=== PATIENT | male | born 1975 | race Caucasian/White ===

== ENCOUNTER 2016-12-15 20:15 | Emergency (ER) | payer BC, OTHER ==
--- NOTE | 2016-12-15 21:18 | ED CLINICAL REPORT ---
Clinical Report - Physicians/Mid Levels [facility] [address] [place] [address] 12/15/2016 20:21 [id number] Time Seen: 20:50; initial patient contact. Arrived- By private vehicle. Historian- patient. HISTORY OF PRESENT ILLNESS Chief Complaint: Injury to the left thumb. The injury happened just prior to arrival. Occurred at home. ( Injury occurred. This occurred (at 445 PM). ( pt was cutting gilberto with razor knife and cut his left thumb). No numbness.). The patient sustained a laceration from a knife. Patient is experiencing mild pain. No other injury. REVIEW OF SYSTEMS The patient sustained a single laceration to the left thumb. All systems otherwise negative, except as recorded above. PAST HISTORY See nurses notes. The patient's dominant hand is the right. Tetanus immunization status is unknown. Problems: Hypertension. Medications: Aspirin Oral (Tablet Chewable 81 mg) 1 tablet, daily. Lisinopril Oral (Tablet 30 mg) 1 tablet, daily. Cymbalta Oral 90 mg, daily. Allergies: None. SOCIAL HISTORY Never smoker. No alcohol use or drug use. ADDITIONAL NOTES The nursing notes have been reviewed with agreement regarding the chief complaint, HPI, ROS, PMH and patient medications and allergies. PHYSICAL EXAM Vital Signs: 12/15/2016 20:31 BP: 132/65. HR: 81. RR: 16. O2 saturation: 95%. Temp: 98.6 F. Pain level now: 2/10. Have been reviewed. Appearance: Alert. Oriented X3. No acute distress. Extremities: Left thumb: subcutaneous 1.0 cm laceration of the volar aspect and IP joint. SEE LACERATION PROCEDURE NOTE #1. Neurovascular intact distally. No limitation in movement. No wrist injury. Hand and wrist exam otherwise negative. Extremities otherwise negative. Neuro, Vascular and Tendons: Vascular status intact. Sensation intact. Motor intact. Tendon function intact. PROGRESS AND PROCEDURES Laceration Repair: Time: 21:00. Location: left thumb. Length: 1 cm. Complexity: simple (local anesthesia used and sutured). Wound depth/shape- subcutaneous and linear and involving fascia. Distal neuro/vascular/tendon status normal. No sensory deficit distally. Local anesthesia provided using 1% lidocaine (2 mL). Prepped with chlorhexidine. Wound explored, cleansed, irrigated and examined to the base in bloodless field extensively with normal saline. Closure of skin: 4-0 (3 sutures). Post-procedure: he is stable and there are no complications. Bleeding is controlled and neuro-vascular status is intact distal to the wound (3 sutures). Sterile dressing consisting of 4x4 gauze was applied. Following the application of antibiotic ointment. Secured with tape and annamarie. Tetanus immunization given. Estimated blood loss: 1 mL. Course of Care: Patient is stable. Symptoms better. Patient/family counseled. CLINICAL IMPRESSION Single deep laceration to the left thumb.No foreign body present or left fingernail injury. INSTRUCTIONS Elevate affected areas above chest level. Protect wound and keep wound area clean. You may wash wounds briefly, then dry. Sutures should be removed in seven days. Limit use of your left hand for one weeks as needed and until better. No dietary restrictions. Warnings: COMPLICATIONS: Complications from this condition are possible. Future problems may include infection, scarring and pain. It is important to follow up with a physician for further evaluation and treatment. TETANUS: You were given a tetanus shot during your visit. Make a note for future reference. GENERAL WARNINGS: Return or contact your physician immediately if your condition worsens or changes unexpectedly, if not improving as expected, or if other problems arise. Your Current Medications: CONTINUE TAKING THE FOLLOWING MEDICATIONS: Aspirin Oral : Tablet Chewable 81 mg, 1 tablet daily. Cymbalta Oral : 90 mg daily. Lisinopril Oral : Tablet 30 mg, 1 tablet daily. Prescription Medications: Hydrocodone/APAP 5mg / 325mg: take 1 orally every 6 hours as needed for pain. Dispense ten (10). No refill. Follow-up: Follow up with your doctor in seven days for suture removal. Reason for referral: laceration. Understanding of the discharge instructions verbalized by patient. (Electronically signed by Renetta Cruz PA-C 12/15/2016 21:49)
--- NOTE | 2016-12-15 21:18 | ED NURSING NOTES ---
Clinical Report - Nurses [facility] [address] [place] [address] 12/15/2016 20:21 [id number] Triage time 20:Dec 15 2016. Acuity: LEVEL 4. Chief Complaint: Location of symptoms- left thumb (laceration). Alert. No acute distress. KOFFI COMA SCORE: [place] Coma Scale: 15- eyes open spontaneously (4); best verbal response- oriented x 4 (5); best motor response- obeys commands (6). --20:37 Jillian Sesay R.N. 20:31 12/15/16. BP: 132/65. HR: 81. RR: 16. O2 saturation: 95%. Temp: 98.6 F. Pain level now: 08/23. --20:37 Jillian Sesay R.N. Weight: 99.7 kg stated. Height/Length: 69 inches Per Patient. BMI: 32.5. --20:35 Jillian Sesay R.N. Medications Cymbalta Oral 90 mg, daily. --20:33 Jillian Sesay R.N. Lisinopril Oral (Tablet 30 mg) 1 tablet, daily. --20:33 Jillian Sesay R.N. Aspirin Oral (Tablet Chewable 81 mg) 1 tablet, daily. --20:33 Jillian Sesay R.N. Allergies None. --20:34 Jillian Sesay R.N. History Arrived by private vehicle. Historian: patient. Accompanied by family. Injury occurred. This occurred (at 445 PM). ( pt was cutting gilberto with razor knife and cut his left thumb). No numbness. Treatment INSPECTOR TUBES: None. PAST MEDICAL HX: Tetanus status: unknown. Immunizations: status is unknown. SOCIAL HX: Never smoker. Occasional alcohol use. No drug use. No infectious disease exposure. SELF HARM ASSESSMENT: A self harm assessment was performed. The patient answered "no" to the question "Do you have thoughts of harming or killing yourself?". FALL RISK ASSESSMENT: Fall risk assessment completed. No fall risk identified. NUTRITIONAL RISK ASSESSMENT: The nutritional risk assessment revealed no deficiencies. FUNCTIONAL ASSESSMENT: Functional assessment: no impairments noted. LEARNING NEEDS ASSESSMENT: The learning needs assessment revealed no barriers. ABUSE ASSESSMENT: Abuse assessment: The patient was asked "Do you feel safe in your home?". SKIN INTEGRITY ASSESSMENT: Skin integrity risk assessment completed. No skin integrity risk identified. --20:37 Jillian Sesay R.N. PROBLEMS: Hypertension. --20:35 Jillian Sesay R.N. ADDITIONAL SURGERIES: Lyphoma. Vericel. --20:35 Jillian Sesay R.N. Interventions ID band on patient. --20:37 Jillian Sesay R.N. PHYSICAL ASSESSMENT Ambulatory to room. GENERAL / NEURO / PSYCH: Oriented X 4. Alert. Appears in no acute distress. EXTREMITIES: Extremities exhibit normal ROM. Neuro-vascular status intact to the extremity. Left thumb: subcutaneous 1.5 cm laceration. SKIN: Skin is warm and dry. --20:37 Jillian Sesay R.N. NURSING PROGRESS NOTES Patient identifiers checked. Call light placed in reach. Bed placed in lowest position. Brakes of bed on. --20:38 Jillian Sesay R.N. Wound cleansed with sterile saline. --21:06 Jillian Sesay R.N. 21:27 12/15/2016 TDAP IM 0.5 mL given. (Lot#: [id number], expiration date: 11/21/2018). Given in the left deltoid. Allergies verified and confirmed 5 rights. Vaccine information statement provided to the patient. --21:27 Jillian Sesay R.N. DISPOSITION / DISCHARGE Departure time: 21:50 Dec 15 2016. Condition at departure: improved. No learning barriers present. Discharge instructions provided and reviewed with the patient. Reviewed medication(s) side effects, precautions, dosing and course information. Prescription(s) given to the patient. Reviewed referral to a primary care physician for followup. Patient verbalized understanding. Written instructions provided in [place]. The patient was discharged home and accompanied by spouse. He left the Emergency Department ambulatory and via private vehicle. Spouse driving. FALL RISK ASSESSMENT: Fall risk assessment completed. No fall risk identified. --21:50 Jillian Sesay R.N. 21:49 12/15/16. BP: 106/58. HR: 88. RR: 16. O2 saturation: 95%. Pain level now: 08/23. --21:50 Jillian Sesay R.N. Locked/Released at 12/15/2016 21:50 by Jillian Sesay R.N.
--- NOTE | 2016-12-15 21:18 | ED NURSING NOTES ---
Clinical Report - Nurses [facility] [address] [place] [address] 12/15/2016 20:21 [id number] Triage time 20:Dec 15 2016. Acuity: LEVEL 4. Chief Complaint: Location of symptoms- left thumb (laceration). Alert. No acute distress. KOFFI COMA SCORE: [place] Coma Scale: 15- eyes open spontaneously (4); best verbal response- oriented x 4 (5); best motor response- obeys commands (6). --20:37 Jillian Sesay R.N. 20:31 12/15/16. BP: 132/65. HR: 81. RR: 16. O2 saturation: 95%. Temp: 98.6 F. Pain level now: 08/23. --20:37 Jillian Sesay R.N. Weight: 99.7 kg stated. Height/Length: 69 inches Per Patient. BMI: 32.5. --20:35 Jillian Sesay R.N. Medications Cymbalta Oral 90 mg, daily. --20:33 Jillian Sesay R.N. Lisinopril Oral (Tablet 30 mg) 1 tablet, daily. --20:33 Jillian Sesay R.N. Aspirin Oral (Tablet Chewable 81 mg) 1 tablet, daily. --20:33 Jillian Sesay R.N. Allergies None. --20:34 Jillian Sesay R.N. History Arrived by private vehicle. Historian: patient. Accompanied by family. Injury occurred. This occurred (at 445 PM). ( pt was cutting gilberto with razor knife and cut his left thumb). No numbness. Treatment DAMPPROOFER: None. PAST MEDICAL HX: Tetanus status: unknown. Immunizations: status is unknown. SOCIAL HX: Never smoker. Occasional alcohol use. No drug use. No infectious disease exposure. SELF HARM ASSESSMENT: A self harm assessment was performed. The patient answered "no" to the question "Do you have thoughts of harming or killing yourself?". FALL RISK ASSESSMENT: Fall risk assessment completed. No fall risk identified. NUTRITIONAL RISK ASSESSMENT: The nutritional risk assessment revealed no deficiencies. FUNCTIONAL ASSESSMENT: Functional assessment: no impairments noted. LEARNING NEEDS ASSESSMENT: The learning needs assessment revealed no barriers. ABUSE ASSESSMENT: Abuse assessment: The patient was asked "Do you feel safe in your home?". SKIN INTEGRITY ASSESSMENT: Skin integrity risk assessment completed. No skin integrity risk identified. --20:37 Jillian Sesay R.N. PROBLEMS: Hypertension. --20:35 Jillian Sesay R.N. ADDITIONAL SURGERIES: Lyphoma. Vericel. --20:35 Jillian Sesay R.N. Interventions ID band on patient. --20:37 Jillian Sesay R.N. PHYSICAL ASSESSMENT Ambulatory to room. GENERAL / NEURO / PSYCH: Oriented X 4. Alert. Appears in no acute distress. EXTREMITIES: Extremities exhibit normal ROM. Neuro-vascular status intact to the extremity. Left thumb: subcutaneous 1.5 cm laceration. SKIN: Skin is warm and dry. --20:37 Jillian Sesay R.N. NURSING PROGRESS NOTES Patient identifiers checked. Call light placed in reach. Bed placed in lowest position. Brakes of bed on. --20:38 Jillian Sesay R.N. Wound cleansed with sterile saline. --21:06 Jillian Sesay R.N. 21:27 12/15/2016 TDAP IM 0.5 mL given. (Lot#: [id number], expiration date: 11/21/2018). Given in the left deltoid. Allergies verified and confirmed 5 rights. Vaccine information statement provided to the patient. --21:27 Jillian Sesay R.N. DISPOSITION / DISCHARGE Departure time: 21:50 Dec 15 2016. Condition at departure: improved. No learning barriers present. Discharge instructions provided and reviewed with the patient. Reviewed medication(s) side effects, precautions, dosing and course information. Prescription(s) given to the patient. Reviewed referral to a primary care physician for followup. Patient verbalized understanding. Written instructions provided in Israeli. The patient was discharged home and accompanied by spouse. He left the Emergency Department ambulatory and via private vehicle. Spouse driving. FALL RISK ASSESSMENT: Fall risk assessment completed. No fall risk identified. --21:50 Jillian Sesay R.N. 21:49 12/15/16. BP: 106/58. HR: 88. RR: 16. O2 saturation: 95%. Pain level now: 08/23. --21:50 Jillian Sesay R.N. Locked/Released at 12/15/2016 21:50 by Jillian Sesay R.N.
--- NOTE | 2016-12-15 21:51 | ED MED RECONCILIATION SUMMARY ---
Patient: CARLOS MIRAMONTES Medication Reconciliation Report [facility] VisitID: [id number] [address] [place] [address] 41y, M Registration Date/Time: 12/15/2016 Weight: 99.7 kg Height/Length: 69 in. BMI: 32.5 ALLERGIES: None The patient's Home Medications are listed below: CONTINUE TAKING THE FOLLOWING MEDICATIONS: Aspirin Oral (81 mg) 1 tablet, daily Cymbalta Oral 90 mg, daily Lisinopril Oral (30 mg) 1 tablet, daily The source(s) of the original Home Medication information: Not obtained. The following Medications were given to the patient in the Emergency Department: TDAP [IM] IM 0.5 mL, administered: 12/15/2016 9:27:00 PM The following Medications were prescribed to the patient: Hydrocodone/APAP 5mg / 325mg: take 1 orally every 6 hours as needed for pain. Dispense ten (10). No refill. -- Renetta Cruz PA-C
--- NOTE | 2016-12-15 21:51 | ED DISCHARGE INSTRUCTIONS ---
Patient: CARLOS MIRAMONTES General Instructions [facility] VisitID: [id number] [place] [address] 41y, M Registration Date/Time: 12/15/2016 Single deep laceration to the left thumb.No foreign body present or left fingernail injury. INSTRUCTIONS Elevate affected areas above chest level. Protect wound and keep wound area clean. You may wash wounds briefly, then dry. Sutures should be removed in seven days. Limit use of your left hand for one weeks as needed and until better. No dietary restrictions. Warnings: COMPLICATIONS: Complications from this condition are possible. Future problems may include infection, scarring and pain. It is important to follow up with a physician for further evaluation and treatment. TETANUS: You were given a tetanus shot during your visit. Make a note for future reference. GENERAL WARNINGS: Return or contact your physician immediately if your condition worsens or changes unexpectedly, if not improving as expected, or if other problems arise. Your Current Medications: CONTINUE TAKING THE FOLLOWING MEDICATIONS: Aspirin Oral : Tablet Chewable 81 mg, 1 tablet daily. Cymbalta Oral : 90 mg daily. Lisinopril Oral : Tablet 30 mg, 1 tablet daily. Prescription Medications: Hydrocodone/APAP 5mg / 325mg: take 1 orally every 6 hours as needed for pain. Dispense ten (10). No refill. Follow-up: Follow up with your doctor in seven days for suture removal. Reason for referral: laceration. Understanding of the discharge instructions verbalized by patient. ADDITIONAL INFORMATION Laceration (All Closures) Alaceration is a cut through the skin. This will usually require stitches (sutures) or bhaskar if it is deep. Minor cuts may be treated with a surgical tape closure orskin glue. Home care The following guidelines will help you care for your laceration at home: Extremity, face, or trunk wounds Keep the wound clean and dry. If a bandage was applied and it becomes wet or dirty, replace it. Otherwise, leave it in place for the first 24 hours. If stitches or bhaskar were used, clean the wound daily. After removing the bandage, wash the area with soap and water. Use a wet cotton swab to loosen and remove any blood or crust that forms. The doctor may prescribe an antibiotic cream or ointment to prevent infection. Do not stop taking this medication until you have finished the prescribed course or the doctor tells you to stop. The doctor may also prescribe medications for pain. Follow the doctors instructions for taking these medications. You may remove the bandage to shower as usual after the first 24 hours, but do not soak the area in water (no swimming) until the stitches or bhaskar are removed. If surgical tape was used, keep the area clean and dry. If it becomes wet, blot it dry with a towel. If skin glue was used, do not scratch, rub, or pick at the adhesive film. Do not place tape directly over the film. Do not apply liquid, ointment, or creams to the wound while the film is in place. Do not clean the wound with peroxide and do not apply ointments. Avoid activities that cause heavy sweating until the film has fallen off. Protect the wound from prolonged exposure to sunlight or tanning lamps. You may shower as usual but do not soak the wound in water (no baths or swimming). The film will fall off by itself in 510 days. Scalp wounds During the first two days, you may carefully rinse your hair in the shower to remove blood, glass or dirt particles. After two days, you may shower and shampoo your hair normally. Do not soak your scalp in the tub or go swimming until the stitches or bhaskar have been removed. Talk with your doctor before applying any antibiotic ointment to the wound. Mouth wounds Eat soft foods to reduce pain. If the cut is inside of your mouth, clean by rinsing after each meal and at bedtime with a mixture of equal parts water and hydrogen peroxide (do not swallow!). Or, you can use a cotton swab to directly apply hydrogen peroxide onto the cut. Mouth wounds can be painful when eating. You may use an gqsy-aob-rhgpyqz local numbing solution for pain relief. If this is not available, you may use any numbing solution for teething babies. You may apply this directly to the sores with a cotton-tip swab or with your finger. Follow-up care Follow up with your health care provider. Most skin wounds heal within ten days. Mouth and facial wounds heal within five days. However, even with proper treatment, a wound infection may sometimes occur. Therefore, you should check the wound daily for signs of infection listed below. Stitches should be removed from the face within five days; stitches and bhaskar should be removed from other parts of the body within 714 days. If dissolving stitches were used in the mouth, these will fall out or dissolve without the need for removal. If tape closures were used, remove them yourself if they have not fallen off after 7 days. Ifskin glue was used, the film will fall off by itself in 510 days. When to seek medical care Get prompt medical attention if any of these occur: Bleeding not controlled by direct pressure Signs of infection, including increasing pain in the wound, increasing wound redness or swelling, or pus coming from the wound Fever of 100.4F (38C) or higher, or as directed by your health care provider Stitches or bhaskar come apart or fall out or surgical tape falls off before 7 days Wound edges re-open Diphtheria Toxoid Adsorbed, Pertussis Vaccine, Acellular (Adsorbed), Tetanus Toxoid, Adsorbed Suspension for injection What is this medicine? DIPHTHERIA and TETANUS TOXOIDS; PERTUSSIS VACCINE (dif THEER ee uh and TET n us TOK soids; per VEGA corbin SEEN) is used to prevent diphtheria, tetanus, and pertussis infections. How should I use this medicine? This vaccine is for injection into a muscle. It is given by a health restorative care technician. A copy of Vaccine Information Statements will be given before each vaccination. Read this sheet carefully each time. The sheet may change frequently. Talk to your protective signal repairer helper regarding the use of this vaccine in children. While the DTP vaccine may be given to children ages 6 weeks to 7 years and the Tdap vaccine may be given to children at least 10 years old, precautions do apply. What side effects may I notice from receiving this medicine? Side effects that you should report to your doctor or health restorative care technician as soon as possible: allergic reactions like skin rash, itching or hives, swelling of the face, lips, or tongue breathing problems fever of 103 degrees F or more flu-like symptoms inconsolable crying infection pain, tingling, numbness in the hands or feet seizures swelling of arm or leg that was injected unusually weak or tired Side effects that usually do not require immediate medical attention (report these side effects to your doctor or health restorative care technician if they continue or are bothersome): fussy, irritable loss of appetite fever of 102 degrees F or less pain, tenderness, redness, swelling, or a 'knot' at site where injected vomiting What may interact with this medicine? immune globulin medicines that suppress your immune function like adalimumab, anakinra, infliximab medicines to treat cancer medicines that treat or prevent blood clots like warfarin, enoxaparin, and dalteparin steroid medicines like prednisone or cortisone What if I miss a dose? It is important not to miss your dose. Call your doctor or health restorative care technician if you are unable to keep an appointment. Where should I keep my medicine? This drug is given in a hospital or clinic and will not be stored at home. What should I tell my health care provider before I take this medicine? They need to know if you have any of these conditions: blood disorders like hemophilia fever or infection immune system problems neurologic disease seizures an unusual or allergic reaction to vaccines, thimerosal, latex, other medicines, foods, dyes, or preservatives or trying to get breast-feeding What should I watch for while using this medicine? See your health care provider for all shots of this vaccine as directed. To have protection from infection, you must have 3 shots of this vaccine plus boosters as needed. Tell your doctor right away if you have any serious or unusual side effects after getting this vaccine. You have been given the following additional information: Laceration, All Diphtheria Toxoid Adsorbed, Pertussis Vaccine, Acellular (Adsorbed), Tetanus Toxoid, Adsorbed Suspension for injection Limit use of your left hand for one weeks as needed and until better. (Electronically signed by Renetta Cruz PA-C 12/15/2016 21:49)
--- NOTE | 2016-12-15 21:51 | ED ORDER SUMMARY ---
..... Patient: CARLOS MIRAMONTES OrderSheet [facility] VisitID: [id number] [address] [place] [address] 41y, M Registration Date/Time: 12/15/2016 ORDER SHEET Weight: 99.7 kg (stated) Allergies: None GENERAL ORDERS: MEDICATION ORDERS: Tdap IM 0.5 mL (NOW) (21:26 12/15/2016 Carola R.NDee Dee per protocol) (21:27 Carola R.N.) IV FLUIDS: ORDER SHEET NOTES: [Electronically signed by Renetta Cruz PA-C (21:49 12/15/2016)] [Electronically signed by Jillian Sesay R.N. (21:50 12/15/2016)] [Electronically locked/signed by Jillian Sesay R.N. (21:50 12/15/2016)]
--- NOTE | 2016-12-15 21:51 | ED DISCHARGE INSTRUCTIONS ---
Patient: CARLOS MIRAMONTES General Instructions [facility] VisitID: [id number] [place] [address] 41y, M Registration Date/Time: 12/15/2016 Single deep laceration to the left thumb.No foreign body present or left fingernail injury. INSTRUCTIONS Elevate affected areas above chest level. Protect wound and keep wound area clean. You may wash wounds briefly, then dry. Sutures should be removed in seven days. Limit use of your left hand for one weeks as needed and until better. No dietary restrictions. Warnings: COMPLICATIONS: Complications from this condition are possible. Future problems may include infection, scarring and pain. It is important to follow up with a physician for further evaluation and treatment. TETANUS: You were given a tetanus shot during your visit. Make a note for future reference. GENERAL WARNINGS: Return or contact your physician immediately if your condition worsens or changes unexpectedly, if not improving as expected, or if other problems arise. Your Current Medications: CONTINUE TAKING THE FOLLOWING MEDICATIONS: Aspirin Oral : Tablet Chewable 81 mg, 1 tablet daily. Cymbalta Oral : 90 mg daily. Lisinopril Oral : Tablet 30 mg, 1 tablet daily. Prescription Medications: Hydrocodone/APAP 5mg / 325mg: take 1 orally every 6 hours as needed for pain. Dispense ten (10). No refill. Follow-up: Follow up with your doctor in seven days for suture removal. Reason for referral: laceration. Understanding of the discharge instructions verbalized by patient. ADDITIONAL INFORMATION Laceration (All Closures) Alaceration is a cut through the skin. This will usually require stitches (sutures) or bhaskar if it is deep. Minor cuts may be treated with a surgical tape closure orskin glue. Home care The following guidelines will help you care for your laceration at home: Extremity, face, or trunk wounds Keep the wound clean and dry. If a bandage was applied and it becomes wet or dirty, replace it. Otherwise, leave it in place for the first 24 hours. If stitches or bhaskar were used, clean the wound daily. After removing the bandage, wash the area with soap and water. Use a wet cotton swab to loosen and remove any blood or crust that forms. The doctor may prescribe an antibiotic cream or ointment to prevent infection. Do not stop taking this medication until you have finished the prescribed course or the doctor tells you to stop. The doctor may also prescribe medications for pain. Follow the doctors instructions for taking these medications. You may remove the bandage to shower as usual after the first 24 hours, but do not soak the area in water (no swimming) until the stitches or bhaskar are removed. If surgical tape was used, keep the area clean and dry. If it becomes wet, blot it dry with a towel. If skin glue was used, do not scratch, rub, or pick at the adhesive film. Do not place tape directly over the film. Do not apply liquid, ointment, or creams to the wound while the film is in place. Do not clean the wound with peroxide and do not apply ointments. Avoid activities that cause heavy sweating until the film has fallen off. Protect the wound from prolonged exposure to sunlight or tanning lamps. You may shower as usual but do not soak the wound in water (no baths or swimming). The film will fall off by itself in 510 days. Scalp wounds During the first two days, you may carefully rinse your hair in the shower to remove blood, glass or dirt particles. After two days, you may shower and shampoo your hair normally. Do not soak your scalp in the tub or go swimming until the stitches or bhaskar have been removed. Talk with your doctor before applying any antibiotic ointment to the wound. Mouth wounds Eat soft foods to reduce pain. If the cut is inside of your mouth, clean by rinsing after each meal and at bedtime with a mixture of equal parts water and hydrogen peroxide (do not swallow!). Or, you can use a cotton swab to directly apply hydrogen peroxide onto the cut. Mouth wounds can be painful when eating. You may use an [id number] local numbing solution for pain relief. If this is not available, you may use any numbing solution for teething babies. You may apply this directly to the sores with a cotton-tip swab or with your finger. Follow-up care Follow up with your health care provider. Most skin wounds heal within ten days. Mouth and facial wounds heal within five days. However, even with proper treatment, a wound infection may sometimes occur. Therefore, you should check the wound daily for signs of infection listed below. Stitches should be removed from the face within five days; stitches and bhaskar should be removed from other parts of the body within 714 days. If dissolving stitches were used in the mouth, these will fall out or dissolve without the need for removal. If tape closures were used, remove them yourself if they have not fallen off after 7 days. Ifskin glue was used, the film will fall off by itself in 510 days. When to seek medical care Get prompt medical attention if any of these occur: Bleeding not controlled by direct pressure Signs of infection, including increasing pain in the wound, increasing wound redness or swelling, or pus coming from the wound Fever of 100.4F (38C) or higher, or as directed by your health care provider Stitches or bhaskar come apart or fall out or surgical tape falls off before 7 days Wound edges re-open Diphtheria Toxoid Adsorbed, Pertussis Vaccine, Acellular (Adsorbed), Tetanus Toxoid, Adsorbed Suspension for injection What is this medicine? DIPHTHERIA and TETANUS TOXOIDS; PERTUSSIS VACCINE (dif THEER ee uh and TET n us TOK soids; per VEGA corbin SEEN) is used to prevent diphtheria, tetanus, and pertussis infections. How should I use this medicine? This vaccine is for injection into a muscle. It is given by a health health care attorney. A copy of Vaccine Information Statements will be given before each vaccination. Read this sheet carefully each time. The sheet may change frequently. Talk to your banquet attendant regarding the use of this vaccine in children. While the DTP vaccine may be given to children ages 6 weeks to 7 years and the Tdap vaccine may be given to children at least 10 years old, precautions do apply. What side effects may I notice from receiving this medicine? Side effects that you should report to your doctor or health health care attorney as soon as possible: allergic reactions like skin rash, itching or hives, swelling of the face, lips, or tongue breathing problems fever of 103 degrees F or more flu-like symptoms inconsolable crying infection pain, tingling, numbness in the hands or feet seizures swelling of arm or leg that was injected unusually weak or tired Side effects that usually do not require immediate medical attention (report these side effects to your doctor or health health care attorney if they continue or are bothersome): fussy, irritable loss of appetite fever of 102 degrees F or less pain, tenderness, redness, swelling, or a 'knot' at site where injected vomiting What may interact with this medicine? immune globulin medicines that suppress your immune function like adalimumab, anakinra, infliximab medicines to treat cancer medicines that treat or prevent blood clots like warfarin, enoxaparin, and dalteparin steroid medicines like prednisone or cortisone What if I miss a dose? It is important not to miss your dose. Call your doctor or health health care attorney if you are unable to keep an appointment. Where should I keep my medicine? This drug is given in a hospital or clinic and will not be stored at home. What should I tell my health care provider before I take this medicine? They need to know if you have any of these conditions: blood disorders like hemophilia fever or infection immune system problems neurologic disease seizures an unusual or allergic reaction to vaccines, thimerosal, latex, other medicines, foods, dyes, or preservatives or trying to get breast-feeding What should I watch for while using this medicine? See your health care provider for all shots of this vaccine as directed. To have protection from infection, you must have 3 shots of this vaccine plus boosters as needed. Tell your doctor right away if you have any serious or unusual side effects after getting this vaccine. You have been given the following additional information: Laceration, All Diphtheria Toxoid Adsorbed, Pertussis Vaccine, Acellular (Adsorbed), Tetanus Toxoid, Adsorbed Suspension for injection Limit use of your left hand for one weeks as needed and until better. (Electronically signed by Renetta Cruz PA-C 12/15/2016 21:49)
--- NOTE | 2016-12-15 21:51 | ED MED RECONCILIATION SUMMARY ---
Patient: CARLOS MIRAMONTES Medication Reconciliation Report [facility] VisitID: [id number] [address] [place] [address] 41y, M Registration Date/Time: 12/15/2016 Weight: 99.7 kg Height/Length: 69 in. BMI: 32.5 ALLERGIES: None The patient's Home Medications are listed below: CONTINUE TAKING THE FOLLOWING MEDICATIONS: Aspirin Oral (81 mg) 1 tablet, daily Cymbalta Oral 90 mg, daily Lisinopril Oral (30 mg) 1 tablet, daily The source(s) of the original Home Medication information: Not obtained. The following Medications were given to the patient in the Emergency Department: TDAP [IM] IM 0.5 mL, administered: 12/15/2016 9:27:00 PM The following Medications were prescribed to the patient: Hydrocodone/APAP 5mg / 325mg: take 1 orally every 6 hours as needed for pain. Dispense ten (10). No refill. -- Renetta Cruz PA-C
--- NOTE | 2016-12-15 21:51 | ED MAR SUMMARY ---
..... Medication Administration Record [facility] [address] [place] [address] Patient: CARLOS MIRAMONTES Visit ID: [id number] 41y, M Weight: 99.7 kg Height/Length: 69 in BMI: 32.5 ALLERGIES: None Given 21:27 12/15/2016 Jillian Sesay R.N. Medication Administered: TDAP [IM], Dose: 0.5 mL IM. Medication Ordered: Tdap IM 0.5 mL (NOW).
--- NOTE | 2016-12-15 21:51 | ED ORDER SUMMARY ---
..... Patient: CARLOS MIRAMONTES OrderSheet [facility] VisitID: [id number] [address] [place] [address] 41y, M Registration Date/Time: 12/15/2016 ORDER SHEET Weight: 99.7 kg (stated) Allergies: None GENERAL ORDERS: MEDICATION ORDERS: Tdap IM 0.5 mL (NOW) (21:26 12/15/2016 Carola R.NDee Dee per protocol) (21:27 Carola R.N.) IV FLUIDS: ORDER SHEET NOTES: [Electronically signed by Renetta Cruz PA-C (21:49 12/15/2016)] [Electronically signed by Jillian Sesay R.N. (21:50 12/15/2016)] [Electronically locked/signed by Jillian Sseay R.N. (21:50 12/15/2016)]
--- NOTE | 2016-12-15 21:51 | ED MAR SUMMARY ---
..... Medication Administration Record [facility] [address] [address] Patient: CARLOS MIRAMONTES Visit ID: [id number] 41y, M Weight: 99.7 kg Height/Length: 69 in BMI: 32.5 ALLERGIES: None Given 21:27 12/15/2016 Jillian Sesay R.N. Medication Administered: TDAP [IM], Dose: 0.5 mL IM. Medication Ordered: Tdap IM 0.5 mL (NOW).
== END 2016-12-15 21:50 | disposition home or self-care (01) ==
LOC: ED SRH 20:15
DX: S61.012A Laceration without foreign body of left thumb without damage to nail, initial encounter (principal); W26.0XXA Contact with knife, initial encounter; Y93.89 Activity, other specified; Y99.9 Unspecified external cause status; Y92.009 Unspecified place in unspecified non-institutional (private) residence as the place of occurrence of the external cause; I10 Essential (primary) hypertension; Z23 Encounter for immunization; Z79.82 Long term (current) use of aspirin; Z79.899 Other long term (current) drug therapy